=== PATIENT | male | born 1995 | race Caucasian/White ===

== ENCOUNTER 2018-12-02 12:27 | Emergency (ER) | payer BC ==
[~2018-12-02] VITALS: Ht 182.9 cm; Wt 113.4 kg
[~2018-12-02 12:27] MED LIST: ARIP2TAB35 PO; FLUO20CA8 PO
[2018-12-02 12:38] VITALS: BP 142/96
[2018-12-02] MEDS ORDERED: KETOROLAC 60 MG/2 ML VIAL. IM ONE (13:10)
[2018-12-02] MEDS ORDERED: NAPR500T8 PO (13:16)
--- NOTE | 2018-12-02 13:16 | PHYS DOC ---
Past History Past Medical History: No Pertinent History Past Surgical History: Other Smoking: Non-smoker Alcohol Use: None Drug Use: None Adult General Chief Complaint Chief Complaint: KNEE INJURY HPI HPI 22-year-old male with chronic right knee/patella issues. He's had a procedure done by Dr. Dueñas to stabilize the patella some time ago. He felt as if the right patella is out of place. He states it now hurts when he moves his knee. He denies any particular injury. He has not noticed any significant swelling.[] Review of Systems Review of Systems Musculoskeletal: Per history of present illness[] All other systems were reviewed and found to be within normal limits, except as documented in this note. Current Medications Current Medications Current Medications Medications (Trade) Dose Ordered Sig/Mary Start Time Stop Time Status Last Admin Dose Admin Ketorolac Tromethamine (Toradol Im) 60 mg 1X ONCE 12/02/18 13:10 12/02/18 13:11 DC Allergies Allergies Allergies Coded Allergies Type Severity Reaction Last Updated Verified Sulfa (Sulfonamide Antibiotics) Allergy Intermediate HIVES AND TONGUE SWELLING 12/02/18 Yes Physical Exam Physical Exam Constitutional: Well developed, well nourished, mild distress, non-toxic appearance. [] HENT: Normocephalic, atraumatic, bilateral external ears normal, oropharynx moist, no oral exudates, nose normal. []. [] Skin: Warm, dry, no erythema, no rash. [] Back: No tenderness, no CVA tenderness. [] Extremities: Right knee demonstrates full range of motion patella is midline and there is some patellar apprehension[] Neurologic: Alert and oriented X 3, normal motor function, normal sensory function, no focal deficits noted. [] Psychologic: Anxious. [] Current Patient Data Vital Signs Vital Signs Date Time Temp Pulse Resp B/P (MAP) Pulse Ox O2 Delivery O2 Flow Rate FiO2 12/02/18 12:38 97.5 83 18 96 Room Air EKG EKG [] Radiology/Procedures Radiology/Procedures [] Impressions: Right knee x-ray is normal as interpreted by me Course & Med Decision Making Course & Med Decision Making Pertinent Labs and Imaging studies reviewed. (See chart for details) [] Dragon Disclaimer Dragon Disclaimer This electronic medical record was generated, in whole or in part, using a voice recognition dictation system. Departure Departure: Impression: Primary Impression: Sprain of right knee Disposition: HOME, SELF-CARE Condition: STABLE Referrals: PCP,UNKNOWN (PCP) Patient Instructions: Knee - Patella Problems, Knee Pain, Knee Sprain Additional Instructions: Follow with your orthopedic surgeon this week for recheck. Scripts Naproxen (NAPROXEN) 500 Mg Tablet.dr 1 TAB PO Q12HR PRN for PAIN, #60 TAB 1 Refill Prov: NANCY NUNEZ DO 12/02/18 Problem Qualifiers Primary Impression: Sprain of right knee Encounter type: initial encounter Involved ligament of knee: unspecified ligament Qualified Codes: S83.91XA - Sprain of unspecified site of right knee, initial encounter NANCY NUNEZ DO December 02, 2018 13:16
--- NOTE | 2018-12-02 13:17 | RAD ---
3 view study of the right knee Clinical indications: Right knee pain. FINDINGS: No acute fracture or dislocation or lytic process is seen. Minimal degenerative spurring of the medial and lateral tibiofemoral joint compartments is seen. No right knee joint effusion is seen. There is a small exostosis of the medial epicondyle at the attachment of the medial collateral ligament. This may be related to old trauma or a traction spur. IMPRESSION: No acute osseous abnormality. Mild primary degenerative spurring. Electronically signed by: Lakhwinder Proctor MD (12/02/2018 1:14 PM) [email or web address]
== END 2018-12-02 13:25 | disposition home or self-care (01) ==
LOC: ER 12:27
DX: S83.91XA Sprain of unspecified site of right knee, initial encounter (principal); Z88.2 Allergy status to sulfonamides; X58.XXXA Exposure to other specified factors, initial encounter; Y93.89 Activity, other specified; Y92.89 Other specified places as the place of occurrence of the external cause; Y99.8 Other external cause status
CPT/HCPCS: 73562; 99284